=== PATIENT | female | born 1995 | race Caucasian/White ===

== ENCOUNTER 2018-02-10 15:20 | Emergency (ER) | payer SELFPAY ==
[~2018-02-10] VITALS: Ht 152.4 cm; Wt 62.0 kg
[~2018-02-10 15:20] MED LIST: PREN-88 PO
[2018-02-10] MEDS ORDERED: CYCLOBENZAPRINE 10MG TABLET PO ONE (19:15)
[2018-02-10] MEDS ORDERED: IBUPROFEN 600MG TABLET PO ONE (19:15)
[2018-02-10 20:31] VITALS: BP 138/76
== END 2018-02-10 20:33 | disposition home or self-care (01) ==
LOC: ER 17:35
DX: S56.912A Strain of unspecified muscles, fascia and tendons at forearm level, left arm, initial encounter (principal); S56.911A Strain of unspecified muscles, fascia and tendons at forearm level, right arm, initial encounter; S39.012A Strain of muscle, fascia and tendon of lower back, initial encounter; V89.2XXA Person injured in unspecified motor-vehicle accident, traffic, initial encounter; Y93.89 Activity, other specified; Y92.89 Other specified places as the place of occurrence of the external cause; Y99.8 Other external cause status
CPT/HCPCS: 81025; 99283